=== PATIENT | male | born 1990 | race Caucasian/White ===

== ENCOUNTER 2018-11-16 12:08 | Outpatient (RCR) | payer SELFPAY | END 2019-02-14 | disposition home or self-care (01) | LOC: CARD 12:08 | PROVIDERS: ATTEND Nurse Practitioner | DX: R00.2 Palpitations (principal) | CPT/HCPCS: 93225; 93226 ==

== ENCOUNTER 2019-10-04 17:44 | Emergency (ER) | payer SELFPAY ==
[~2019-10-04] VITALS: Ht 157 cm; Wt 103.8 kg
--- OUTSIDE RECORDS SUMMARY | 2019-10-04 17:50 | XMS REPORT | Continuity of Care Document ---
Author Organization Unknown Address Unknown Phone Unavailable Allergies There is no data. Medications There is no data. Problems Date Dx Coded Attending Type Code Diagnosis Diagnosed By 02/14/2019 STELLA CRUZ Ot R00.2 PALPITATIONS 02/15/2019 STELLA CRUZ Ot R00.2 PALPITATIONS 02/16/2019 STELLA CRUZ Ot R00.2 PALPITATIONS 10/04/2019 STELLA CRUZ Ot R00.2 PALPITATIONS Procedures There is no data. Results There is no data. Encounters ACCT No. Visit Date/Time Discharge Status Pt. Type Provider Facility Loc./Unit Complaint [id number] 02/15/2019 11:30:00 019 23:59:59 CLS Preadmit STELLA CRUZ HISTORIC SITES REGISTRAR [facility] CARD PALPITATIONS [id number] 11/16/2018 12:08:00 019 00:01:00 DIS Outpatient STELLA CRUZP [facility] CARD PALPITATIONS [id number] 10/04/2019 17:46:[address] Emergency EVIE RIVERO DO [facility] ER FS BACK PAIN,CONSTIPATION
[2019-10-04 17:59] LABS: BACTERIA,URINE NEGATIVE /HPF; BILIRUBIN,URINE NEGATIVE (NEGATIVE); CLARITY,URINE CLEAR; COLOR,URINE YELLOW; GLUCOSE, URINE (UA) NEGATIVE (NEGATIVE); KETONES,URINE NEGATIVE (NEGATIVE); LEUKOCYTE ESTERASE ,URINE NEGATIVE (NEGATIVE); NITRITE,URINE NEGATIVE (NEGATIVE); PROTEIN,URINE NEGATIVE (NEGATIVE); SQUAMOUS EPITHELIAL CELL,UR >50 /HPF; WBC,URINE RARE /HPF
--- NOTE | 2019-10-04 18:02 | ED GI ---
General Chief Complaint: General Problems/Pain Stated Complaint: BACK PAIN,CONSTIPATION Source of Information: Patient Exam Limitations: No Limitations History of Present Illness Date Seen by Provider: Oct 04, 2019 Time Seen by Provider: 17:50 Initial Comments The patient is a 28-year-old female who presents for evaluation of right flank discomfort, right upper quadrant abdominal discomfort, and dysuria over the last few days. Says that she has had a UTI in the past and that this feels similar. She does not believe she could be currently. She denies fevers or chills, history of abdominal surgeries, chest pain or shortness of breath, cough, vomiting, diarrhea, pelvic pain/bleeding/discharge, rectal bleeding, dizziness or syncope. She is alert and oriented 4, calm, and appears to be in no distress this time. She states that drinking coffee does seem to make the pain worse and also spicy foods. She does have a history of a hiatal hernia. Timing/Duration: 2-3 Days Severity/Quality: Moderate Location: RUQ, Flank (right) Radiation: No Radiation Activities at Onset: None Associated Symptoms: Back Pain (right flank), Heartburn Allergies and Home Medications Allergies Coded Allergies: amoxicillin (Verified Allergy, Unknown, 10/04/19) Home Medications No Active Prescriptions or Reported Meds Patient Home Medication List Home Medication List Reviewed: Yes Review of Systems Review of Systems Constitutional: no symptoms reported EENTM: No Symptoms Reported Respiratory: No Symptoms Reported Cardiovascular: No Symptoms Reported Gastrointestinal: Abdominal Pain Genitourinary: Burning, Urgency Musculoskeletal: no symptoms reported Skin: no symptoms reported Psychiatric/Neurological: No Symptoms Reported Endocrine: No Symptoms Reported Hematologic/Lymphatic: No Symptoms Reported All Other Systems Reviewed Negative Unless Noted: Yes Past Ssbxvrb-Bsxdhz-Zqxlco Hx Past Med/Social Hx: Reviewed Nursing Past Med/Soc Hx Patient Social History Alcohol Use: Denies Use Recreational Drug Use: No 2nd Hand Smoke Exposure: No Recent Foreign Travel: No Contact w/Someone Who Travel: No Past Medical History Surgeries: No Respiratory: No Cardiac: No Neurological: No Genitourinary: No Gastrointestinal: No Musculoskeletal: No Endocrine: No HEENT: No Cancer: No Psychosocial: No Integumentary: No Blood Disorders: No Physical Exam Vital Signs Vital Signs - First Documented 10/04/19 17:49 Temp 37.0 Pulse 98 Resp 16 B/P (MAP) 152/100 (117) Pulse Ox 96 Capillary Refill : Height/Weight/BMI Height: '" Weight: lbs. oz. kg; BMI Method: General Appearance: WD/WN, no apparent distress, obese HEENT: PERRL/EOMI, pharynx normal Respiratory: lungs clear, normal breath sounds, no respiratory distress, no accessory muscle use Cardiovascular: regular rate, rhythm, no edema, no murmur Gastrointestinal: normal bowel sounds, non tender, soft, no pulsatile mass Extremities: normal range of motion, non-tender, no pedal edema Neurologic/Psychiatric: laminator hand II-XII nml as tested, no motor/sensory deficits, alert, normal mood/affect, oriented x 3 Skin: normal color, warm/dry Progress/Results/Core Measures Results/Orders Lab Results Laboratory Tests Test 10/04/19 17:50 Range/Units White Blood Count 6.9 4.3-11.0 10^3/uL Red Blood Count 4.70 4.35-5.85 10^6/uL Hemoglobin 14.2 11.5-16.0 G/DL Hematocrit 42 35-52 % Mean Corpuscular Volume 89 80-99 FL Mean Corpuscular Hemoglobin 30 25-34 PG Mean Corpuscular Hemoglobin Concent 34 32-36 G/DL Red Cell Distribution Width 12.4 10.0-14.5 % Platelet Count 220 130-400 10^3/uL Mean Platelet Volume 10.9 H 7.4-10.4 FL Neutrophils (%) (Auto) 58 42-75 % Lymphocytes (%) (Auto) 31 12-44 % Monocytes (%) (Auto) 7 0-12 % Eosinophils (%) (Auto) 3 0-10 % Basophils (%) (Auto) 1 0-10 % Neutrophils # (Auto) 4.0 1.8-7.8 X 10^3 Lymphocytes # (Auto) 2.1 1.0-4.0 X 10^3 Monocytes # (Auto) 0.5 0.0-1.0 X 10^3 Eosinophils # (Auto) 0.2 0.0-0.3 10^3/uL Basophils # (Auto) 0.1 0.0-0.1 10^3/uL Urine Color YELLOW Urine Clarity CLEAR Urine pH 7.0 5-9 Urine Specific Leivasy 1.010 L 1.016-1.022 Urine Protein NEGATIVE NEGATIVE Urine Glucose (UA) NEGATIVE NEGATIVE Urine Ketones NEGATIVE NEGATIVE Urine Nitrite NEGATIVE NEGATIVE Urine Bilirubin NEGATIVE NEGATIVE Urine Urobilinogen 0.2 < = 1.0 MG/DL Urine Leukocyte Esterase NEGATIVE NEGATIVE Urine RBC (Auto) NEGATIVE NEGATIVE Urine RBC NONE /HPF Urine WBC RARE /HPF Urine Squamous Epithelial Cells >50 H /HPF Urine Crystals NONE /LPF Urine Bacteria NEGATIVE /HPF Urine Casts NONE /LPF Urine Mucus NEGATIVE /LPF Urine Culture Indicated NO Sodium Level 141 135-145 MMOL/L Potassium Level 4.0 3.6-5.0 MMOL/L Chloride Level 101 98-107 MMOL/L Carbon Dioxide Level 26 21-32 MMOL/L Anion Gap 14 5-14 MMOL/L Blood Urea Nitrogen 14 7-18 MG/DL Creatinine 0.73 0.60-1.30 MG/DL Estimat Glomerular Filtration Rate > 60 BUN/Creatinine Ratio 19 Glucose Level 113 H 70-105 MG/DL Calcium Level 9.8 8.5-10.1 MG/DL Corrected Calcium 8.5-10.1 MG/DL Total Bilirubin 0.6 0.1-1.0 MG/DL Aspartate Amino Transf (AST/SGOT) 20 5-34 U/L Alanine Aminotransferase (ALT/SGPT) 35 0-55 U/L Alkaline Phosphatase 79 40-136 U/L Total Protein 8.2 6.4-8.2 GM/DL Albumin 4.9 H 3.2-4.5 GM/DL Amylase Level 64 25-125 U/L Lipase 27 8-78 U/L My Orders Orders - MAT CASE DO Ua Culture If Indicated (10/04/19 17:48) Urine Bedside (10/04/19 17:48) Cbc With Automated Diff (10/04/19 17:55) Comprehensive Metabolic Panel (10/04/19 17:55) Lipase (10/04/19 17:55) Ed Iv/Invasive Line Start (10/04/19 17:55) Ct Abdomen/Pelvis Wo (10/04/19 17:55) Amylase (10/04/19 17:55) Ns Iv 1000 Ml (Sodium Chloride 0.9%) (10/04/19 18:15) Famotidine Injection (Pepcid Injection) (10/04/19 18:15) Lidocaine 2% Viscous 15 Ml (Xylocaine Vi (4/1/20 18:15) Antacid Suspension (Mylanta Suspension (10/04/19 18:15) Fluconazole Tablet (Ed Only) (Diflucan T (10/04/19 18:45) Phenazopyridine Tablet (Pyridium Tablet) (10/04/19 18:45) Medications Given in ED Current Medications Medications Dose Ordered Sig/Naga Route Start Time Stop Time Status Last Admin Dose Admin Al Hydrox/Mg Hydrox/Simethicone 30 ml ONCE ONCE PO 10/04/19 18:15 10/04/19 18:16 DC 10/04/19 18:17 30 ML Famotidine 20 mg ONCE ONCE IVP 10/04/19 18:15 10/04/19 18:16 DC 10/04/19 18:17 20 MG Lidocaine HCl 15 ml ONCE ONCE PO 10/04/19 18:15 10/04/19 18:16 DC 10/04/19 18:17 15 ML Vital Signs/I&O 10/04/19 17:49 Temp 37.0 Pulse 98 Resp 16 B/P (MAP) 152/100 (117) Pulse Ox 96 Progress Progress Note : Progress Note @1840 - patient updated on lab and imaging results which are acutely unremarkable other than showing evidence of constipation. The patient believes that she has a yeast infection and will go home with a prescription for fluconazole. She will also be prescribed Pyridium and Colace. Advised her to drink plenty of fluids at home and to follow up with her PCP in the next 2-3 days. Also advised the patient to return to the emergency Department immediately for new or worsening symptoms. The patient expresses verbal understanding and agreement with the plan and is stable for discharge at this time. Workup today fails to reveal any emergent pathology. Diagnostic Imaging Diagonstic Imaging: CT Comments [facility] [place], [place] NAME: ERASTO YEUNG [facility] REC#: [id number] PT STATUS: REG ER : 1990 PHYSICIAN: MAT CASE DO ADMIT DATE: 10/04/19/ER FS Signed Date of Exam:10/04/19 CT ABDOMEN/PELVIS WO PROCEDURE: CT abdomen and pelvis without contrast. TECHNIQUE: Multiple contiguous axial images were obtained through the abdomen and pelvis without the use of intravenous contrast. Auto Exposure Controls were utilized during the CT exam to meet ALARA standards for radiation dose reduction. INDICATION: Back pain and bilateral flank pain The lung bases are clear. Liver appears normal. The gallbladder is unremarkable. There is a large amount of food residue in the stomach. Pancreas is unremarkable. The spleen is not enlarged. Adrenals are normal. The kidneys appear normal. There is large amount stool throughout the colon. There is a small umbilical hernia containing fat. Small bowel is nondilated. No lymphadenopathy. Urinary bladder appears normal. Uterus is present. Adnexa are unremarkable. There is no intraperitoneal free air or free fluid. IMPRESSION: Fecal stasis. No acute abnormality seen in the abdomen or pelvis. Dictated by: Dictated on workstation # [id number] Dict: 10/04/191821 Trans: 10/04/191824 [id number] Interpreted by: CODY JHAVERI MD Electronically signed by: CODY JHAVERI MD 10/04/191824 Departure Impression Primary Impression: Constipation Additional Impression: Dysuria Disposition: HOME, SELF-CARE Condition: Stable Departure-Patient Inst. Decision time for Depature: 18:43 Referrals: [facility] [place] Primary Care Physician STELLA CRUZ (Family) Primary Care Physician Patient Instructions: Dysuria, Adult (DC), Constipation in Adults Add. Discharge Instructions: Drink plenty of water at home to stay well hydrated. Follow-up with your doctor in the next 2-3 days. Return to the emergency Department immediately for new or worsening symptoms. Take Pyridium for your urinary discomfort. Scripts Phenazopyridine HCl (Pyridium) 100 Mg Tablet 100 MG PO TID for 5 Days, #15 TAB Prov: MAT CASE DO 10/04/19 Docusate Sodium (Colace) 100 Mg Capsule 100 MG PO BID for 10 Days, #20 CAP Prov: MAT CASE DO 10/04/19 MAT CASE DO Oct 04, 2019 18:01
[2019-10-04 18:12] LABS: BASOPHILS # (AUTO) 0.1 10^3/uL (0.0-0.1); BASOPHILS % (AUTO) 1 % (0-10); EOSINOPHILS # (AUTO) 0.2 10^3/uL (0.0-0.3); EOSINOPHILS % (AUTO) 3 % (0-10); HEMATOCRIT 42 % (35-52); HEMOGLOBIN 14.2 G/DL (11.5-16.0); LYMPHOCYTES # (AUTO) 2.1 X 10^3 (1.0-4.0); LYMPHOCYTES % (AUTO) 31 % (12-44); MEAN CORPUSCULAR HEMOGLOBIN 30 PG (25-34); MEAN CORPUSCULAR HGB CONC 34 G/DL (32-36); MEAN CORPUSCULAR VOLUME 89 FL (80-99); MEAN PLATELET VOLUME 10.9 FL (7.4-10.4); MONOCYTES # (AUTO) 0.5 X 10^3 (0.0-1.0); MONOCYTES % (AUTO) 7 % (0-12); NEUTROPHILS % (AUTO) 58 % (42-75); PLATELET COUNT 220 10^3/uL (130-400); RED CELL DISTRIBUTION WIDTH 12.4 % (10.0-14.5); WHITE BLOOD COUNT 6.9 10^3/uL (4.3-11.0)
[2019-10-04] MEDS ORDERED: FAMOTIDINE 20MG/2ML IV (PEPCID) IVP ONE (18:15)
[2019-10-04] MEDS ORDERED: NS IV 1000 ML 1,000 ML IV SCH (18:15)
[2019-10-04] MEDS ORDERED: LIDOCAINE 2% VISCOUS 15 ML UDC PO ONE (18:15)
[2019-10-04] MEDS ORDERED: ANTACID SUSP 30 ML UDC (MYLANTA) PO ONE (18:15)
--- NOTE | 2019-10-04 18:27 | Diagnostic Imaging Report ---
PROCEDURE: CT abdomen and pelvis without contrast. TECHNIQUE: Multiple contiguous axial images were obtained through the abdomen and pelvis without the use of intravenous contrast. Auto Exposure Controls were utilized during the CT exam to meet ALARA standards for radiation dose reduction. INDICATION: Back pain and bilateral flank pain The lung bases are clear. Liver appears normal. The gallbladder is unremarkable. There is a large amount of food residue in the stomach. Pancreas is unremarkable. The spleen is not enlarged. Adrenals are normal. The kidneys appear normal. There is large amount stool throughout the colon. There is a small umbilical hernia containing fat. Small bowel is nondilated. No lymphadenopathy. Urinary bladder appears normal. Uterus is present. Adnexa are unremarkable. There is no intraperitoneal free air or free fluid. IMPRESSION: Fecal stasis. No acute abnormality seen in the abdomen or pelvis. Dictated by: Dictated on workstation # [id number]
[2019-10-04 18:29] LABS: CHLORIDE 101 MMOL/L (98-107); SODIUM 141 MMOL/L (135-145)
[2019-10-04 18:30] LABS: ALANINE AMINOTRANSFERASE 35 U/L (0-55); ALBUMIN 4.9 GM/DL (3.2-4.5); ALKALINE PHOSPHATASE 79 U/L (40-136); AMYLASE 64 U/L (25-125); BILIRUBIN,TOTAL 0.6 MG/DL (0.1-1.0); BUN/CREATININE RATIO 19; CALCIUM 9.8 MG/DL (8.5-10.1); CARBON DIOXIDE 26 MMOL/L (21-32); CREATININE SERUM 0.73 MG/DL (0.60-1.30); GFR ESTIMATED > 60; GLUCOSE 113 MG/DL (70-105); LIPASE 27 U/L (8-78); TOTAL PROTEIN 8.2 GM/DL (6.4-8.2)
[2019-10-04] MEDS ORDERED: DOCU-143 PO (18:45)
[2019-10-04] MEDS ORDERED: PHEN-639 PO (18:45)
[2019-10-04] MEDS ORDERED: PHENAZOPYRIDINE 100 MG (PYRIDIUM) TABLET PO ONE (18:45)
[2019-10-04] MEDS ORDERED: FLUCONAZOLE 150 MG TABLET (ED ONLY) PO ONE (18:45)
[2019-10-04 18:48] VITALS: BP 152/100
== END 2019-10-04 19:00 | disposition home or self-care (01) ==
LOC: EDUNIT# 17:44 → ER FS 17:46 → EDSEX 17:46 → ER FS 19:00
DX: K59.00 Constipation, unspecified (principal); R30.0 Dysuria
CPT/HCPCS: 36415; 74176; 80053; 81000; 82150; 83690; 84703; 85025

== ENCOUNTER 2020-07-13 23:11 | Emergency (ER) | payer SELFPAY ==
[~2020-07-13] VITALS: Ht 162.5 cm; Wt 113.4 kg
[~2020-07-13 23:11] MED LIST: DOCU-143 PO; PHEN-639 PO
--- NOTE | 2020-07-13 23:58 | NUR ---
Pt requested to talk with the doctor. She asked if I could and she was concerned about the medications due to still nursing a child at home. Doctor Ramírez said all was ok, but if she pumped at home she could just pump and dump. Patient requested some time to think about it.
[2020-07-14] MEDS ORDERED: cloNIDine 0.1 MG (CATAPRES) TAB PO ONE
[2020-07-14] MEDS ORDERED: PROCHLORPERAZINE 10 MG/2ML INJ (COMPAZINE) IM ONE
[2020-07-14] MEDS ORDERED: diphenhydrAMINE 50 MG/ML INJ (BENADRYL) IM ONE
--- NOTE | 2020-07-14 01:06 | ED General ---
General Chief Complaint: Cardiac/General Problems Stated Complaint: HIGH BLOOD PRESSURE Nursing Triage Note: pt in per POV c/o high blood pressure reports got home from work and had a JACOBO, states she could feel her pulse in her ears. Took her BP, 160's and came in to ed. States she has been eating or drinking correctly, a lot of sodium intake, Nursing Sepsis Screen: No Definite Risk History of Present Illness Date Seen by Provider: Jul 14, 2020 Time Seen by Provider: 23:45 Initial Comments Patient is a 29-year-old lactating agrees generalized at retro-orbital headache described as throbbing with nausea. Headache started approximately 1 hour prior to ED arrival and is described as moderate to severe. Patient has history of headaches. Reports recent change in schedule, sleep deprivation and changes himself tonight currently contributing to symptoms. States that she had -induced hypertension but is not require blood pressure medication since giving . Patient did check blood pressure at home which was elevated 160s over 114. History family history of subarachnoid hemorrhage. No neck pain or stiffness. Stop rest headache the patient's life. No other acute symptoms or complaints. Last menstrual period was 5 weeks ago. Timing/Duration: 1 Hour Severity: Moderate Modifying Factors: improves with Other Associated Systoms: Other Allergies and Home Medications Allergies Coded Allergies: amoxicillin (Verified Allergy, Unknown, 10/04/19) Home Medications Docusate Sodium 100 Mg Capsule, 100 MG PO BID Prescribed by: MAT CASE on 10/04/191844 Phenazopyridine HCl 100 Mg Tablet, 100 MG PO TID Prescribed by: MAT CASE on 10/04/191844 Patient Home Medication List Home Medication List Reviewed: Yes Review of Systems Review of Systems Constitutional: see HPI EENTM: see HPI Respiratory: see HPI Cardiovascular: see HPI Gastrointestinal: see HPI Genitourinary: see HPI Musculoskeletal: see HPI Skin: see HPI Psychiatric/Neurological: See HPI Hematologic/Lymphatic: See HPI Immunological/Allergic: see HPI All Other Systems Reviewed Negative Unless Noted: Yes Past Pqtskym-Xloloh-Qpjfqg Hx Past Med/Social Hx: Reviewed Nursing Past Med/Soc Hx Patient Social History Alcohol Use: Denies Use Recreational Drug Use: No Smoking Status: Never a Smoker 2nd Hand Smoke Exposure: No Recent Foreign Travel: No Contact w/Someone Who Travel: No Recent Infectious Disease Expo: No Recent Hopitalizations: No Physical Abuse: No Sexual Abuse: No Seasonal Allergies Seasonal Allergies: No Past Medical History Surgeries: No Respiratory: No Cardiac: Yes Hypertension Neurological: No : No Last Menstrual Period: Jun 06, 2020 Genitourinary: No Gastrointestinal: No Musculoskeletal: No Endocrine: No HEENT: No Cancer: No Psychosocial: Yes Anxiety Integumentary: No Blood Disorders: No Physical Exam Vital Signs Vital Signs - First Documented 07/13/20 23:30 Temp 37.5 Pulse 108 Resp 14 B/P (MAP) 167/102 (123) Pulse Ox 99 O2 Delivery Room Air Capillary Refill : Less Than 3 Seconds Height, Weight, BMI Height: '" Weight: lbs. oz. kg; 42.00 BMI Method: General Appearance: Anxious Eyes: Bilateral Eye Normal Inspection, Bilateral Eye PERRL, Bilateral Eye EOMI HEENT: PERRL/EOMI, Pharynx Normal Neck: Full Range of Motion, Supple Respiratory: Lungs Clear Cardiovascular: Regular Rate, Rhythm Gastrointestinal: Non Tender, Soft Neurologic/Psychiatric: Alert, Oriented x3, No Motor/Sensory Deficits, invertebrate paleontologist II- XII Norm as Tested Focused Exam Sepsis Stage: Ruled Out Progress/Results/Core Measures Suspected Sepsis Recent Fever Within 48 Hours: No Infection Criteria Present: None New/Unexplained Altered Menta: No Sepsis Screen: No Definite Risk SIRS Temperature: Pulse: 108 Respiratory Rate: 14 Blood Pressure 167 /102 Mean: 123 Results/Orders My Orders Orders - STANISLAW CH DO Urine Bedside (07/13/20 23:47) Prochlorperazine Injection (Compazine In (07/14/20 00:00) Diphenhydramine Injection (Benadryl Inje (07/14/20 00:00) Clonidine Tablet (Catapres Tablet) (07/14/20 00:00) Ketorolac Injection (Toradol Injection) (07/14/20 00:00) Medications Given in ED Current Medications Medications Dose Ordered Sig/Naga Route Start Time Stop Time Status Last Admin Dose Admin Clonidine HCl 0.1 mg ONCE ONCE PO 07/14/20 00:00 07/14/20 00:01 DC 07/14/20 00:24 0.1 MG Vital Signs/I&O 07/13/20 23:30 Temp 37.5 Pulse 108 Resp 14 B/P (MAP) 167/102 (123) Pulse Ox 99 O2 Delivery Room Air Capillary Refill : Less Than 3 Seconds Blood Pressure Mean: 123 Departure Communication (Admissions) Patient with migraine-like headache with exonerated hypertension. Patient will be cleaned pain medication but was willing to take clonidine with partial improvement headache. Toradol given. No neurologic deficits. Voiced headache patient's life. Recommend continued supportive care watchful waiting and PCP follow-up. Return precautions reviewed. Patient verbalized understanding agreement discharge instructions prior to departure. Impression Primary Impression: Headache Additional Impression: Elevated blood pressure reading Disposition: HOME, SELF-CARE Condition: Stable Departure-Patient Inst. [place] [facility] [place] Primary Care Physician STELLA CRUZ (Family) Primary Care Physician Patient Instructions: High Blood Pressure in Adults, Headache, Adult Add. Discharge Instructions: Please go home and rest. Take 50 mg of Benadryl if headache persists. Follow-up with your PCP for reevaluation of blood pressure remains elevated All discharge instructions reviewed with patient and/or family. Voiced understanding. STANISLAW CH DO Jul 14, 2020 01:06
[2020-07-14] MEDS ORDERED: KETOROLAC 60 MG/2 ML VIAL IM ONE ×2 (01:15)
[2020-07-14 01:24] VITALS: BP 164/92
== END 2020-07-14 01:24 | disposition home or self-care (01) ==
LOC: EDUNIT# 23:11 → ER FS 23:14
DX: R51.9 Headache, unspecified (principal); R03.0 Elevated blood-pressure reading, without diagnosis of hypertension; F41.9 Anxiety disorder, unspecified; Z88.1 Allergy status to other antibiotic agents
CPT/HCPCS: 84703; 99284

== ENCOUNTER 2020-11-02 23:27 | Emergency (ER) | payer SELFPAY ==
[~2020-11-02] VITALS: Ht 160 cm; Wt 110.2 kg
[2020-11-02] MEDS ORDERED: LORazepam INJ 2 MG/ML (ATIVAN) VIAL IVP STA (23:41)
[2020-11-02] MEDS ORDERED: NS IV 1000 ML 1,000 ML IV STA (23:41)
--- NOTE | 2020-11-02 23:45 | ED Chest Pain ---
General Stated Complaint: CHEST/SOB Source: patient History of Present Illness Date Seen by Provider: November 02, 2020 Time Seen by Provider: 23:29 Initial Comments 29-year-old female presenting by private vehicle from home with complaints of her heart racing and pressure in her chest. She states that she has had episodes of this before but usually does not last this long. Tonight she also felt like she was going to pass out. She has pressure under her left breast and substernal area. She was having some nausea but no vomiting. She feels dizzy and lightheaded. When she tried to go tell her and wake him up to let him know about her symptoms she started to hyperventilate which caused her symptoms to escalate. She had been told previously that she had an overactive nerve causing her heart to have palpitations. She had been offered a surgical procedure to cauterize that nerve and had opted not to since her symptoms had seemed to be improving at that time. However in the last 3 months she has had i ncreasing episodes. She denies any burning with urination. She has had no diarrhea or change in her bowels. She denies any cough. She has had no fever or chills. She states tonight she was just putting her child to bed and was not exerting herself or anxious when her symptoms started. Timing/Duration: 1 hour, getting worse Severity/Quality: moderate, pressure Location: substernal (And under left breast) Activities at Onset: other (Has just put her child to bed and was watching a movie on her phone) Prior CP/Workup: other (Previous cardiology testing resulting in being told she had an overactive nerve to her heart) ASA po PRINTING AGENT: No NTG SL PRINTING AGENT: No Associated Symptoms: No abdominal pain, No back pain, No diaphoresis; dizziness; No edema; fatigue; No fever/chills, No headache, No heartburn; nausea/vomiting (Nauseated but no vomiting while she is having these episodes of racing heart); No rash; shortness of breath (Short of breath while having her heart racing); No swelling/lump in chest, No syncope; weakness (Generalized) Allergies and Home Medications Allergies Coded Allergies: amoxicillin (Verified Allergy, Unknown, 10/04/19) Home Medications Propranolol HCl 40 Mg Tablet, 40 MG PO BID Prescribed by: MAGI STERN on 11/03/20 1375 Patient Home Medication List Home Medication List Reviewed: Yes Review of Systems Review of Systems Constitutional: see HPI EENTM: No Symptoms Reported Respiratory: See HPI Cardiovascular: See HPI Gastrointestinal: See HPI Genitourinary: No Symptoms Reported Musculoskeletal: no symptoms reported Skin: No rash Psychiatric/Neurological: Anxiety, Headache, Numbness (Getting numbness in her hands and feet as she is hyperventilating) Endocrine: No Symptoms Reported Past Jzibpyx-Kmzcmm-Kyuszo Hx Past Med/Social Hx: Reviewed Nursing Past Med/Soc Hx Patient Social History 2nd Hand Smoke Exposure: No Recent Hopitalizations: No Seasonal Allergies Seasonal Allergies: No Past Medical History Surgeries: No Respiratory: No Cardiac: Yes Hypertension Neurological: No Genitourinary: No Gastrointestinal: No Musculoskeletal: No Endocrine: No HEENT: No Cancer: No Psychosocial: Yes Anxiety Integumentary: No Blood Disorders: No Physical Exam Vital Signs Vital Signs - First Documented 11/02/20 23:40 Temp 37.5 Pulse 129 Resp 29 B/P (MAP) 161/111 (128) O2 Delivery Room Air Capillary Refill : Height, Weight, BMI Height: '" Weight: lbs. oz. kg; 42.00 BMI Method: General Appearance: Anxious, Moderate Distress (Hyperventilating and anxious), Obese HEENT: PERRL/EOMI, Pharynx Normal Neck: Full Range of Motion, Normal Inspection, Non Tender, Supple Respiratory: Chest Non Tender, Lungs Clear, Normal Breath Sounds, Accessory Muscle Use, Respiratory Distress (Hyperventilating) Cardiovascular: Normal Peripheral Pulses, Tachycardia (Sinus tachycardia with heart rate in the 130 range) Gastrointestinal: Normal Bowel Sounds, No Pulsatile Mass, Non Tender, Soft Rectal: Deferred Extremity: Normal Capillary Refill, No Calf Tenderness, No Pedal Edema Neurologic/Psychiatric: Alert, Oriented x3, tearer II-XII Norm as Tested, Other (Anxious) Skin: Normal Color, Warm/Dry Progress/Results/Core Measures Results/Orders Lab Results Laboratory Tests Test 11/02/20 23:58 11/03/20 00:01 Range/Units White Blood Count 8.0 4.3-11.0 10^3/uL Red Blood Count 4.57 4.35-5.85 10^6/uL Hemoglobin 13.9 11.5-16.0 G/DL Hematocrit 40 35-52 % Mean Corpuscular Volume 87 80-99 FL Mean Corpuscular Hemoglobin 30 25-34 PG Mean Corpuscular Hemoglobin Concent 35 32-36 G/DL Red Cell Distribution Width 12.7 10.0-14.5 % Platelet Count 209 130-400 10^3/uL Mean Platelet Volume 11.0 H 7.4-10.4 FL Immature Granulocyte % (Auto) 0 % Neutrophils (%) (Auto) 59 42-75 % Lymphocytes (%) (Auto) 24 12-44 % Monocytes (%) (Auto) 7 0-12 % Eosinophils (%) (Auto) 9 0-10 % Basophils (%) (Auto) 1 0-10 % Neutrophils # (Auto) 4.7 1.8-7.8 X 10^3 Lymphocytes # (Auto) 1.9 1.0-4.0 X 10^3 Monocytes # (Auto) 0.6 0.0-1.0 X 10^3 Eosinophils # (Auto) 0.7 H 0.0-0.3 10^3/uL Basophils # (Auto) 0.1 0.0-0.1 10^3/uL Immature Granulocyte # (Auto) 0.0 0.0-0.1 10^3/uL Prothrombin Time 13.6 12.2-14.7 SEC INR Comment 1.0 0.8-1.4 Activated Partial Thromboplast Time 26 24-35 SEC D-Dimer 0.38 0.00-0.49 UG/ML Sodium Level 142 135-145 MMOL/L Potassium Level 3.6 3.6-5.0 MMOL/L Chloride Level 109 H 98-107 MMOL/L Carbon Dioxide Level 19 L 21-32 MMOL/L Anion Gap 14 5-14 MMOL/L Blood Urea Nitrogen 18 7-18 MG/DL Creatinine 0.88 0.60-1.30 MG/DL Estimat Glomerular Filtration Rate > 60 BUN/Creatinine Ratio 20 Glucose Level 201 H 70-105 MG/DL Calcium Level 9.1 8.5-10.1 MG/DL Corrected Calcium 8.7 8.5-10.1 MG/DL Magnesium Level 1.7 1.6-2.4 MG/DL Total Bilirubin 0.3 0.1-1.0 MG/DL Aspartate Amino Transf (AST/SGOT) 27 5-34 U/L Alanine Aminotransferase (ALT/SGPT) 33 0-55 U/L Alkaline Phosphatase 78 40-136 U/L Troponin I < 0.30 <0.30 NG/ML Pro-B-Type Natriuretic Peptide 8.0 <75.0 PG/ML Total Protein 7.2 6.4-8.2 GM/DL Albumin 4.5 3.2-4.5 GM/DL Lipase 34 8-78 U/L Serum Test, Qualitative NEGATIVE NEGATIVE Urine Color STRAW Urine Clarity CLEAR Urine pH 6.0 5-9 Urine Specific [place] <=1.005 1.016-1.022 Urine Protein NEGATIVE NEGATIVE Urine Glucose (UA) NEGATIVE NEGATIVE Urine Ketones NEGATIVE NEGATIVE Urine Nitrite NEGATIVE NEGATIVE Urine Bilirubin NEGATIVE NEGATIVE Urine Urobilinogen 0.2 < = 1.0 MG/DL Urine Leukocyte Esterase NEGATIVE NEGATIVE Urine RBC (Auto) NEGATIVE NEGATIVE Urine RBC NONE /HPF Urine WBC RARE /HPF Urine Squamous Epithelial Cells 2-5 /HPF Urine Crystals NONE /LPF Urine Bacteria TRACE /HPF Urine Casts NONE /LPF Urine Mucus NEGATIVE /LPF Urine Culture Indicated NO My Orders Orders - MAGI STERN MD Cbc With Automated Diff (11/02/20 23:41) Magnesium (11/02/20 23:41) Ekg Tracing (11/02/20 23:41) Comprehensive Metabolic Panel (11/02/20 23:41) Protime With Inr (11/02/20 23:41) Partial Thromboplastin Time (11/02/20 23:41) O2 (11/02/20 23:41) Monitor-Rhythm Ecg Trace Only (11/02/20 23:41) Ed Iv/Invasive Line Start (11/02/20 23:41) Lipase (11/02/20 23:41) Troponin I Fs (11/02/20 23:41) Probnp Fs (11/02/20 23:41) Ua Culture If Indicated (11/02/20 23:41) Fibrin Degradation Products (11/02/20 23:41) Hcg,Qualitative Serum (11/02/20 23:41) Ns Iv 1000 Ml (Sodium Chloride 0.9%) (11/02/20 23:41) Lorazepam Injection (Ativan Injection) (11/02/20 23:41) Chest 1 View Ap/Pa Only (11/03/20 00:29) Labetalol Injection (Normodyne Injection (11/03/20 02:00) Medications Given in ED Current Medications Medications Dose Ordered Sig/Naga Route Start Time Stop Time Status Last Admin Dose Admin Labetalol HCl 10 mg ONCE ONCE IV 11/03/20 02:00 11/03/20 02:02 DC 11/03/20 02:10 10 MG Vital Signs/I&O 11/02/20 23:40 Temp 37.5 Pulse 129 Resp 29 B/P (MAP) 161/111 (128) O2 Delivery Room Air Progress Progress Note #1: Progress Note Check lab as well as electrocardiogram and urinalysis. Obtain chest x-ray to look for possible sources for her palpitations. Give IV fluids for hydration and a milligram of Ativan to help with her hyperventilating and anxiety. Differential diagnosis includes heart palpitations, panic attack, dehydration, anemia, UTI, pneumonia, electrolyte imbalance, hyperthyroid Progress Note #2: Progress Note Labs appear stable without acute significant abnormality. Her EKG shows sinus tachycardia without ST elevation. Cardiac telemetry monitoring shows sinus rhythm and sinus tachycardia. She has no acute abnormality on my review of her 1 view chest x-ray. Counseled patient and her on results and possible plating. Advised that if she wanted to be admitted to further work-up the heart palpitations and near syncope in the hospital that I could arrange for an observation stay for tonight. If she would prefer I could also start a low-dose blood pressure medicine as she had previously been on labetalol for over 7 years during her previous pregnancies and had only recently come off of the labetalol after her most recent . In the last 3 to 4 months she has had increasing blood pressure along with these increasing episodes of tachycardia. Could start some propranolol which might also help with anxiety. Encourage her to follow-up as an outpatient for Holter or event monitor and she may need an electrophysiology evaluation as well. Consider thyroid hormone testing to look for other sources for her tachycardia. After patient and her discussed options that he decided to go home kno wing that some of the major life threatening issues have been ruled out with that ER visit tondeb. We will have her try the propranolol and follow-up for additional testing and evaluation. Counseled on follow-up and return precautions. As I do not have propranolol here in the emergency department will give a single dose of labetalol IV 10 mg prior to discharge. Prescribed prop ranolol 40 mg twice daily and supply 1 months worth to give her a chance to check in with the clinic and let them help decide what medication she should be on her what to do next test loya. Initial ECG Impression Date: November 02, 2020 Initial ECG Impression Time: 23:46 Initial ECG Rate: 104 Initial ECG Rhythm: S.Tach Initial ECG Comparisson: No Previous ECG Available Comment Sinus tachycardia with a heart rate of 104 bpm. ND interval [address] elevation. QT interval 344 ms with a QTc interval 453 ms. No prior tracing immediately available for comparison. Diagnostic Imaging Diagonstic Imaging: Xray Plain Films/CT/US/NM/MRI: chest Comments On my review of her 1 view chest x-ray she has no acute infiltrate or effusion. Reviewed: Reviewed by Me Departure Impression Primary Impression: Palpitations Additional Impressions: Elevated blood pressure reading Panic attack Disposition: HOME, SELF-CARE Condition: Stable Departure-Patient Inst. Decision time for Depature: 01:58 Referrals: [facility] [place] (PCP) Primary Care Physician STELLA CRUZ (Family) Primary Care Physician DONNIE TURK MD FACP FACC CCDS Patient Instructions: Anxiety, Adult ED, Palpitations, Heart Healthy Diet Add. Discharge Instructions: Stay well hydrated and get plenty of rest. Try taking the propranolol blood pressure medicine to help with heart rate and blood pressure. Check back with clinic or cardiology about having further testing done for your recurrent palpitations. They may want to set up a Holter or Event monitor to check for additional episodes of your heart racing to see what might be causing it. They may also want to consider hormone testing, especially to look at your thyroid and see if that might be contributing to your symptoms. If having worsening symptoms or not improving you could return or seek medical attention for further testing. Scripts Propranolol HCl (Propranolol HCl) 40 Mg Tablet 40 MG PO BID for palpitations/HTN for 30 Days, #60 TAB 0 Refills Prov: MAGI STERN MD 11/03/20 MAGI STERN MD November 02, 2020 23:45
[2020-11-03 00:12] LABS: BASOPHILS % (AUTO) 1 % (0-10); EOSINOPHILS % (AUTO) 9 % (0-10); HEMATOCRIT 40 % (35-52); HEMOGLOBIN 13.9 G/DL (11.5-16.0); LYMPHOCYTES # (AUTO) 1.9 X 10^3 (1.0-4.0); LYMPHOCYTES % (AUTO) 24 % (12-44); MEAN CORPUSCULAR HEMOGLOBIN 30 PG (25-34); MEAN CORPUSCULAR HGB CONC 35 G/DL (32-36); MEAN CORPUSCULAR VOLUME 87 FL (80-99); MONOCYTES % (AUTO) 7 % (0-12); NEUTROPHILS # (AUTO) 4.7 X 10^3 (1.8-7.8); NEUTROPHILS % (AUTO) 59 % (42-75); PLATELET COUNT 209 10^3/uL (130-400)
[2020-11-03 00:13] LABS: BASOPHILS # (AUTO) 0.1 10^3/uL (0.0-0.1); EOSINOPHILS # (AUTO) 0.7 10^3/uL (0.0-0.3); MONOCYTES # (AUTO) 0.6 X 10^3 (0.0-1.0)
[2020-11-03 00:32] LABS: ALANINE AMINOTRANSFERASE 33 U/L (0-55); ALKALINE PHOSPHATASE 78 U/L (40-136); BILIRUBIN,TOTAL 0.3 MG/DL (0.1-1.0); BUN/CREATININE RATIO 20; CALCIUM 9.1 MG/DL (8.5-10.1); CARBON DIOXIDE 19 MMOL/L (21-32); CHLORIDE 109 MMOL/L (98-107); CREATININE SERUM 0.88 MG/DL (0.60-1.30); GFR ESTIMATED > 60; GLUCOSE 201 MG/DL (70-105); MAGNESIUM 1.7 MG/DL (1.6-2.4); POTASSIUM 3.6 MMOL/L (3.6-5.0); PROTHROMBIN TIME PATIENT 13.6 SEC (12.2-14.7); SODIUM 142 MMOL/L (135-145)
[2020-11-03 00:33] LABS: ALBUMIN 4.5 GM/DL (3.2-4.5); LIPASE 34 U/L (8-78); TOTAL PROTEIN 7.2 GM/DL (6.4-8.2)
[2020-11-03 00:34] LABS: FIBRIN DEGRADATION PRODUCTS 0.38 UG/ML (0.00-0.49)
[2020-11-03 00:37] LABS: BILIRUBIN,URINE NEGATIVE (NEGATIVE); CLARITY,URINE CLEAR; COLOR,URINE STRAW; GLUCOSE, URINE (UA) NEGATIVE (NEGATIVE); KETONES,URINE NEGATIVE (NEGATIVE); LEUKOCYTE ESTERASE ,URINE NEGATIVE (NEGATIVE); NITRITE,URINE NEGATIVE (NEGATIVE); PROTEIN,URINE NEGATIVE (NEGATIVE); WBC,URINE RARE /HPF
[2020-11-03 00:38] LABS: BACTERIA,URINE TRACE /HPF
[2020-11-03] MEDS ORDERED: PROP40TA5 PO (01:57)
[2020-11-03] MEDS ORDERED: LABETALOL HCL 20 MG/4 ML VIAL IV ONE (02:00)
[2020-11-03 02:20] VITALS: BP 157/86
--- NOTE | 2020-11-03 07:27 | Diagnostic Imaging Report ---
Indication: Chest pain and heart palpitations. Comparison: None. Discussion: Single portable upright view of the chest was obtained. Normal heart size. No consolidation, pleural fluid, or pneumothorax. No osseous abnormality. Impression: 1. Negative portable chest. Dictated by: Dictated on workstation # [id number]
== END 2020-11-03 02:20 | disposition home or self-care (01) ==
LOC: EDUNIT# 23:27 → ER FS 23:30
DX: R00.2 Palpitations (principal); I10 Essential (primary) hypertension; F41.0 Panic disorder [episodic paroxysmal anxiety]; E66.9 Obesity, unspecified; Z68.41 Body mass index [BMI] 40.0-44.9, adult; Z88.1 Allergy status to other antibiotic agents; Z79.899 Other long term (current) drug therapy
CPT/HCPCS: 36415; 71045; 80053; 83690; 83735; 83880; 84484; 84703; 85025; 85379; 85610; 85730; 93005